=== PATIENT | male | born 2000 | race Caucasian/White ===

== ENCOUNTER 2023-06-15 12:15 | Observation (INO) | payer OTHER ==
--- NOTE | 2023-06-15 12:23 | ED ---
General Adult HPI - General Source: patient, RN notes reviewed Mode of arrival: ambulatory Limitations: no limitations <Otoniel Monroy - Last Filed: 06/15/23 12:22> <Jhonatan Haas - Last Filed: 06/15/23 13:30> - General Stated complaint: abd pain Time Seen by Provider: 06/15/23 12:22 - History of Present Illness Initial comments: 23-year-old male presents emergency Department chief complaint of abdominal pain. Patient states that 2 weeks ago he was at a different hospital which she was diagnosed with colitis. Patient states he continues to have abdominal discomfort, weight loss, nausea vomiting diarrhea. (Otoniel Monroy) This is a 23-year-old male who presents emergency Department with a three-week history of rectal bleeding. Patient states it was quite a bit of rectal bleeding early on and he still has a little bit after he experiences abdominal cramping. Patient states he has lost 20 pounds in the last 3 weeks. Patient has been to any ER or urgent care 4 times and has had 2 CAT scans. Patient states as of 3 days ago he starts vomiting anytime he eats or drinks anything. Patient states this morning he had some water and vomited that up as well. Patient is in college currently in trying to study for his finals next week and this is making it difficult. Patient has requested [facility] hospitalist (Jhonatan Haas) Review of Systems ROS Other: All systems not noted in ROS Statement are negative. <Otoniel Monroy - Last Filed: 06/15/23 12:22> ROS Other: All systems not noted in ROS Statement are negative. <Jhonatan Haas - Last Filed: 06/15/23 13:30> ROS Statement: Those systems with pertinent positive or pertinent negative responses have been documented in the HPI. General Exam <Otoniel Monroy - Last Filed: 06/15/23 12:22> <Jhonatan Haas - Last Filed: 06/15/23 13:30> - General Exam Comments Initial Comments: Visual Physical Exam Vital signs reviewed General: Well-appearing, nontoxic, no acute distress. Head: Normocephalic, atraumatic Eyes: PERRLA, EOMI ENT: Airway patent Chest: Nonlabored breathing Skin: No visual rash, normal skin tone Neuro: Alert and oriented 3 Musculoskeletal: No gross abnormalities (Otoniel Monroy) GENERAL: Patient is well-developed and well-nourished. Patient is nontoxic and well- hydrated and is in mild distress. ENT: Neck is soft and supple. No significant lymphadenopathy is noted. Oropharynx is clear. Moist mucous membranes. Neck has full range of motion without elicit ing any pain. EYES: The sclera were anicteric and conjunctiva were pink and moist. Extraocular m ovements were intact and pupils were equal round and reactive to light. Eyelids were unremarkable. PULMONARY: Unlabored respirations. Good breath sounds bilaterally. No audible rales rhonchi or wheezing was noted. CARDIOVASCULAR: There is a regular rate and rhythm without any murmurs gallops or rubs. ABDOMEN: Soft and nontender with normal bowel sounds. SKIN: Skin is clear with no lesions or rashes and otherwise unremarkable. NEUROLOGIC: Patient is alert and oriented x3. Cranial nerves II through XII are grossly intact. Motor and sensory are also intact. Normal speech, volume and content. Symmetrical smile. MUSCULOSKELETAL: Normal extremities with adequate strength and full range of motion. LYMPHATICS: No significant lymphadenopathy is noted PSYCHIATRIC: Normal psychiatric evaluation. (Jhonatan Haas) Course Vital Signs 06/15/23 12:26 Temperature 98.2 F Pulse Rate 106 H Respiratory 18 Rate Blood Pressure 137/83 O2 Sat by Pulse 97 Oximetry Medical Decision Making <Otoniel Monroy - Last Filed: 06/15/23 12:22> - Lab Data Result diagrams: 06/15/23 12:34 06/15/23 12:34 <Jhonatan Haas - Last Filed: 06/15/23 13:30> - Medical Decision Making I completed the quick note portion of this chart signed Otoniel Monroy PA-C (Otoniel Monroy) Was pt. sent in by a medical professional or institution (, PA, BEER MAKER, urgent care, hospital, or senior care...) When possible be specific @ -No Did you speak to anyone other than the patient for history (EMS, parent, family, police, friend...)? What history was obtained from this source @ -No Did you review nursing and triage notes (agree or disagree)? Why? @ -I reviewed and agree with nursing and triage notes Were old charts reviewed (outside hosp., previous admission, EMS record, old EKG, old radiological studies, urgent care reports/EKG's, senior care records)? Report findings @ -Old charts since multiple facilities an old CTs from other facilities. Differential Diagnosis (chest pain, altered mental status, abdominal pain women, abdominal pain men, vaginal bleeding, weakness, fever, dyspnea, syncope, headache, dizziness, GI bleed, back pain, seizure, CVA, palpatations, mental health, musculoskeletal)? @ -Differential Abdominal Pain Men: Appendicitis, cholecystitis, diverticulosis, ischemic bowel, pancreatitis, hepatitis, UTI, gastroenteritis, AAA, incarcerated hernia, bowel obstruction, constipation, inflammatory bowel, hepatitis, peptic ulcer disease, splenic infarction, perforated viscus, testicular torsion, this is not meant to be an al l-inclusive list EKG interpreted by me (3pts min.). @ -As above X-rays interpreted by me (1pt min.). @ -None done CT interpreted by me (1pt min.). @ -None done U/S interpreted by me (1pt. min.). @ -None done What testing was considered but not performed or refused? (CT, X-rays, U/S, labs)? Why? @ -None What meds were considered but not given or refused? Why? @ -None Did you discuss the management of the patient with other professionals (professionals i.e. , PA, BEER MAKER, lab, RT, psych nurse, social science research assistant, service person, teacher, executive vice president and chief financial officer, security shift manager)? Give summary @ -Patient requested a [place] hospitalist. I finished hospice they agreed to admit the patient Was smoking cessation discussed for >3mins.? @ -No Was critical care preformed (if so, how long)? @ -No Were there social determinants of health that impacted care today? How? (Homelessness, low income, unemployed, alcoholism, drug addiction, transportation, low edu. Level, literacy, decrease access to med. care, care home, rehab)? @ -No Was there de-escalation of care discussed even if they declined (Discuss DNR or withdrawal of care, Hospice)? DNR status @ -No What co-morbidities impacted this encounter? (DM, HTN, Smoking, COPD, CAD, Cancer, CVA, ARF, Chemo, Hep., AIDS, mental health diagnosis, sleep apnea, morbid obesity)? @ -None Was patient admitted / discharged? Hospital course, mention meds given and route, prescriptions, significant lab abnormalities, going to OR and other pertinent info. @ -Patient had no diarrhea or vomiting in the emergency department but he has not eaten any solid food for 3 days. Patient will be admitted for 23 observation and will be consulted. Undiagnosed new problem with uncertain prognosis? @ -No Drug Therapy requiring intensive monitoring for toxicity (Heparin, Nitro, Insulin, Cardizem)? @ -No Were any procedures done? @ -No Diagnosis/symptom? @ -Rectal bleeding Acute, or Chronic, or Acute on Chronic? @ -Acute Uncomplicated (without systemic symptoms) or Complicated (systemic symptoms)? @ -Complicated Side effects of treatment? @ -No Exacerbation, Progression, or Severe Exacerbation? @ -No Poses a threat to life or bodily function? How? (Chest pain, [place], [place], pneumonia, PE, COPD, DKA, ARF, appy, cholecystitis, CVA, Diverticulitis, Homicidal, Suicidal, threat to staff... and all critical care pts) @ -No Diagnosis/symptom? @ -Nausea vomiting Acute, or Chronic, or Acute on Chronic? @ -Acute Uncomplicated (without systemic symptoms) or Complicated (systemic symptoms)? @ -Complicated Side effects of treatment? @ -none Exacerbation, Progression, or Severe Exacerbation] @ -no Poses a threat to life or bodily function? @ -no (Jhonatan Haas) - Lab Data Lab Results 06/15/23 06/15/23 06/15/23 Range/Units 12:34 12:34 12:34 WBC 6.4 (3.8-10.6) k/uL RBC 4.90 (4.30-5.90) m/uL Hgb 14.6 (13.0-17.5) gm/dL Hct 42.4 (39.0-53.0) % MCV 86.5 (80.0-100.0) fL MCH 29.7 (25.0-35.0) pg MCHC 34.3 (31.0-37.0) g/dL RDW 12.8 (11.5-15.5) % Plt Count 308 (150-450) k/uL MPV 6.7 Neutrophils % 66 % Lymphocytes % 23 % Monocytes % 7 % Eosinophils % 2 % Basophils % 1 % Neutrophils # 4.2 (1.3-7.7) k/uL Lymphocytes # 1.4 (1.0-4.8) k/uL Monocytes # 0.4 (0-1.0) k/uL Eosinophils # 0.1 (0-0.7) k/uL Basophils # 0.0 (0-0.2) k/uL Sodium 139 (137-145) mmol/L Potassium 4.2 (3.5-5.1) mmol/L Chloride 105 (98-107) mmol/L Carbon Dioxide 11 L (22-30) mmol/L Anion Gap 23 mmol/L BUN 9 (9-20) mg/dL Creatinine 0.99 (0.66-1.25) mg/dL Est GFR (CKD-EPI)AfAm >90 (>60 ml/min/1.73 sqM) Est GFR (CKD-EPI)NonAf >90 (>60 ml/min/1.73 sqM) Glucose 58 L (74-99) mg/dL Plasma Lactic Acid Lionel 0.7 (0.7-2.0) mmol/L Calcium 9.8 (8.4-10.2) mg/dL Total Bilirubin 1.0 (0.2-1.3) mg/dL AST 28 (17-59) U/L ALT 22 (4-49) U/L Alkaline Phosphatase 79 (38-126) U/L Total Protein 7.7 (6.3-8.2) g/dL Albumin 4.9 (3.5-5.0) g/dL Lipase 59 (23-300) U/L Disposition <Otoniel Monroy - Last Filed: 06/15/23 12:22> Time of Disposition: 13:30 <Jhonatan Haas - Last Filed: 06/15/23 13:30> Clinical Impression: Rectal bleeding, Abdominal cramping, Nausea & vomiting Disposition: ADMITTED IP TO THIS HOSP Referrals: None,Stated [Primary Care Provider] - 1-2 days
[2023-06-15 13:10] LABS: ALT 22 U/L (4-49); AST 28 U/L (17-59); African American GFR (CKD) >90 (>60 ml/min/1.73 sqM); Albumin 4.9 g/dL (3.5-5.0); Alkaline Phosphatase 79 U/L (38-126); Anion Gap 23 mmol/L; Blood Urea Nitrogen 9 mg/dL (9-20); Calcium 9.8 mg/dL (8.4-10.2); Carbon Dioxide 11 mmol/L (22-30); Chloride 105 mmol/L (98-107); Glucose 58 mg/dL (74-99); Lipase 59 U/L (23-300); Non-African American GFR(CKD) >90 (>60 ml/min/1.73 sqM); Potassium 4.2 mmol/L (3.5-5.1); Sodium 139 mmol/L (137-145); Total Protein 7.7 g/dL (6.3-8.2)
[2023-06-15 13:15] LABS: Basophils % (A) 1 %; Eosinophils # (A) 0.1 k/uL (0-0.7); Eosinophils % (A) 2 %; HCT 42.4 % (39.0-53.0); HGB 14.6 gm/dL (13.0-17.5); Lymphocytes # (A) 1.4 k/uL (1.0-4.8); Lymphocytes % (A) 23 %; MCH 29.7 pg (25.0-35.0); MCHC 34.3 g/dL (31.0-37.0); MCV 86.5 fL (80.0-100.0); Mean Platelet Volume 6.7; Monocytes # (A) 0.4 k/uL (0-1.0); Monocytes % (A) 7 %; Neutrophils # (A) 4.2 k/uL (1.3-7.7); Neutrophils % (A) 66 %; Platelet Count 308 k/uL (150-450); RDW 12.8 % (11.5-15.5); WBC 6.4 k/uL (3.8-10.6)
[2023-06-15 13:27] LABS: INR 1.1 (<1.2); Partial Thromboplastin Time 27.2 sec (22.0-30.0); Prothrombin Time 11.9 sec (10.0-12.5)
[2023-06-15] MEDS ORDERED: SODIUM CHLORIDE 0.9% 1,000 ML IV ONE (13:31)
[2023-06-15] MEDS: PANTOPRAZOLE 40 MG/10 ML VIAL IVP SCH ×2 (14:00→21:27)
[2023-06-15] MEDS ORDERED: ACETAMINOPHEN TAB 325 MG TAB PO PRN (14:25)
[2023-06-15] MEDS ORDERED: ONDANSETRON 4 MG/2 ML VIAL IVP PRN (14:25)
[2023-06-15] MEDS ORDERED: HYDROcodone/APAP 5-325MG 1 EACH TAB PO PRN (14:25)
[2023-06-15] MEDS ORDERED: HYDROmorphone 1 MG/ML 1 ML SYRINGE IVP PRN (14:25)
[2023-06-15] MEDS ORDERED: NALOXONE 0.4 MG/ML 1 ML VIAL IV PRN (14:25)
--- NOTE | 2023-06-15 14:59 | P.HPIM ---
History of Present Illness H&P Date: 06/15/23 Chief Complaint: Abdominal pain blood in stool * 23-year-old gentleman who presents to the emergency department with complains of abdominal pain. Patient said he has been having nausea, vomiting and diarrhea ongoing for the last 2 weeks. Patient said he went to an ER multiple times and had 2 CT abdomen completed. Patient said he was told he had colitis. Patient decided to come back to the emergency department because of persistent symptoms and three-week history of rectal bleeding and approximately 20 pound weight loss. * Patient states that couple of weeks ago patient was seen in the ED at outside hospital and was prescribed antibiotic which she took for 1 week. Patient does not remember the exact name however Ceftin and Flagyl seemed familiar to him. Patient says he'll symptom persisted and went to [facility] where he had repeat CT done. Patient states he has about 6-7 loose stool, with streaks of blood. Patient says he does have some flecks of solid component as well * He denied sick contact denies recent travel or camping * Workup initiated in ER included CBC which was sensitive negative with hemoglobin of 14.6 platelet count of 308 INR of 1.1 * Serum chemistry obtained sodium 139 potassium 4.2 carbon dioxide 11 BU and 9 and creatinine 0.99 glucose 58 liver profile within normal limits * Patient placed in observation with consultation to be obtained from gastroenterology * CT from outside hospital requested by ED team REVIEW OF SYSTEMS: Nausea, vomiting, abdominal pain, blood in stool, diarrhea CONSTITUTIONAL: No fever, no malaise, no fatigue. HEENT: No recent visual problems or hearing problems. Denied any sore throat. CARDIOVASCULAR: No chest pain, orthopnea, PND, no palpitations, no syncope. PULMONARY: No shortness of breath, no cough, no hemoptysis. GASTROINTESTINAL:Nausea, vomiting, abdominal pain, blood in stool, diarrhea, weight loss NEUROLOGICAL: No headaches, no weakness, no numbness. HEMATOLOGICAL: Denies any bleeding or petechiae. GENITOURINARY: Denies any burning micturition, frequency, or urgency. MUSCULOSKELETAL/RHEUMATOLOGICAL: Denies any joint pain, swelling, or any muscle pain. ENDOCRINE: Denies any polyuria or polydipsia. PHYSICAL EXAMINATION: GENERAL: The patient is alert and oriented x3, not in any acute distress. Well developed, well nourished. HEENT: Pupils are round and equally reacting to light. EOMI. CARDIOVASCULAR: S1 and S2 present. No murmurs, rubs, or gallops. PULMONARY: Chest is clear to auscultation, no wheezing or crackles. ABDOMEN: Soft, nontender, nondistended, normoactive bowel sounds. No palpable organomegaly. MUSCULOSKELETAL: No joint swelling or deformity. EXTREMITIES: No cyanosis, clubbing, or pedal edema. NEUROLOGICAL: Gross neurological examination did not reveal any focal deficits. SKIN: No rashes. Past Medical History Additional Past Medical History / Comment(s): colitis History of Any Multi-Drug Resistant Organisms: None Reported Past Surgical History: No Surgical Hx Reported Past Psychological History: No Psychological Hx Reported Smoking Status: Never smoker Past Alcohol Use History: Rare Past Drug Use History: None Reported Medications and Allergies Home Medications Medication Instructions Recorded Confirmed Type HYDROcodone/APAP 5-325MG [[place] 1 tab PO Q6H PRN 06/15/23 06/15/23 History 5-325] Ondansetron Odt [Zofran Odt] 4 mg PO TID PRN 06/15/23 06/15/23 History Prochlorperazine [Compazine] 10 mg PO DIRECTED PRN 06/15/23 06/15/23 History Allergies Allergy/AdvReac Type Severity Reaction Status Date / Time Milk Containing Products Allergy Unknown Verified 06/15/23 14:09 (Dairy) [Dairy] Physical Exam Vitals: Vital Signs Temp Pulse Resp BP Pulse Ox 06/15/23 12:26 98.2 F 106 H 18 137/83 97 Intake and Output 06/14/23 06/15/23 06/15/23 22:59 06:59 14:59 Other: Weight 89.539 kg Results CBC & Chem 7: 06/15/23 12:34 06/15/23 12:34 Labs: Abnormal Lab Results - Last 24 Hours (Table) 06/15/23 Range/Units 12:34 Carbon Dioxide 11 L (22-30) mmol/L Glucose 58 L (74-99) mg/dL Thrombosis Risk Factor Assmnt - DVT/VTE Prophylaxis DVT/VTE Prophylaxis: Mechanical Prophylaxis ordered Assessment and Plan Assessment: Assessment and plan Right red blood per rectum rule out gastrointestinal bleed Recurrent nausea/vomiting suspected gastritis Diarrhea rule out infectious etiology Metabolic acidosis * In regards to blood in stool, fecal occult blood tests ordered, continue IV Protonix, diet to be advanced to clear liquid was seen by GI, continue to monitor CBC every 6 hours * In regards to recurrent nausea and vomiting patient started on IV fluid, continue IV Zofran as needed for nausea on up on basic metabolic panel up on basic metabolic panel * In regards to diarrhea rule out infectious etiology stool C. diff ordered stool cultures ordered * ,In regards to metabolic acidosis continue to follow-up on serum chemistry post hydration * CODE STATUS is full code
--- NOTE | 2023-06-15 15:16 | P.CONS ---
History of Present Illness - Reason for Consult Consult date: 06/15/23 Active bleeding, 20 pound weight loss Requesting physician: Jhonatan Haas - Chief Complaint Abdominal pain, rectal bleeding - History of Present Illness This a 23-year-old male who presented to the emergency department with complaints of abdominal pain and rectal bleeding. Apparently patient 2 weeks ago was at a outside hospital [facility] and was diagnosed with colitis. He states he was only told he had colitis from a CAT scan. He was sent home on 2 antibiotics for 1 week, Bentyl and Zofran. He continued to have blood in his stools bowel movements could be anywhere from 3-7 day. He has not had bowel movement the last couple days because he has not been eating. States every time he tries to eat he is vomiting over the last 2 days. Bowel movements often happen throughout the night as well. Denies any fevers or chills but states he's lost 20 pounds in the last 2-3 weeks duration. Yesterday he was also seen at [facility] in [place] and states he had another CAT scan which he says he was told was improved inflammation however he was still feeling abdominal pain so he came to the emergency department. Apparently records have been requested but not available at this time. Labs WBC 6.4 hemoglobin 14.6 hematocrit 42 platelet count 308,019 or 1.1 sodium 139 potassium 4.2 BUN 9 creatinine 0.9 glucose 58 total bilirubin 1.0 AST 28 ALT 22 alkaline phosphatase 79 lipase 59 Review of Systems REVIEW OF SYSTEMS: CARDIOPULMONARY: No chest pain or shortness of breath. Gastrointestinal: Abdominal pain, crampy in nature. Nausea with vomiting. Difficulty holding food down. Reports 20 pound weight loss in last 3 weeks. No hematemesis, coffee-ground emesis. Rectal bleeding with loose stools. GENITOURINARY: No dysuria or hematuria. MUSCULOSKELETAL: Reports normal range of motion. SKIN: No rashes. No jaundice. ENDOCRINE: No chills, fevers. No excessive weight gain or loss. No polydipsia or polyuria. PSYCHIATRIC: Unremarkable. NEUROLOGY: No change in mental status. Denies dizziness, headache. ENT: Vision unremarkable. CONSTITUTIONAL: No recent weight loss. No fever, chills, night sweats. Past Medical History Additional Past Medical History / Comment(s): colitis History of Any Multi-Drug Resistant Organisms: None Reported Past Surgical History: No Surgical Hx Reported Past Psychological History: No Psychological Hx Reported Smoking Status: Never smoker Past Alcohol Use History: Rare Past Drug Use History: None Reported Medications and Allergies Home Medications Medication Instructions Recorded Confirmed Type HYDROcodone/APAP 5-325MG [[place] 1 tab PO Q6H PRN 06/15/23 06/15/23 History 5-325] Ondansetron Odt [Zofran Odt] 4 mg PO TID PRN 06/15/23 06/15/23 History Prochlorperazine [Compazine] 10 mg PO DIRECTED PRN 06/15/23 06/15/23 History Allergies Allergy/AdvReac Type Severity Reaction Status Date / Time Milk Containing Products Allergy Unknown Verified 06/15/23 14:09 (Dairy) [Dairy] Physical Exam Vitals: Vital Signs Temp Pulse Resp BP Pulse Ox 06/15/23 12:26 98.2 F 106 H 18 137/83 97 Intake and Output 06/14/23 06/15/23 06/15/23 22:59 06:59 14:59 Other: Weight 89.539 kg General appearance: The patient is alert, oriented, appears in no acute distress. HET: Head is normocephalic and atraumatic. Conjunctiva pink. Sclera anicteric. Neck: Supple without lymphadenopathy. Trachea midline. Heart: Regular. Lungs: Equal expansion, normal respiratory effort. Abdomen: Soft, lower abdominal tenderness, nondistended with bowel sounds. No guarding or rigidity. Skin: No rashes. No jaundice. Extremities: Normal skin color and turgor. No pedal edema. Neurological: No focal deficits. Alert and oriented x3. Results CBC & Chem 7: 06/15/23 12:34 06/15/23 12:34 Labs: Abnormal Lab Results - Last 24 Hours (Table) 06/15/23 Range/Units 12:34 Carbon Dioxide 11 L (22-30) mmol/L Glucose 58 L (74-99) mg/dL Assessment and Plan (1) Rectal bleeding Narrative/Plan: 23-year-old male presenting to the emergency department for the third time in the last 2 weeks with complaints of abdominal pain, diarrhea and bloody bowel movements. No previous history of colitis, no previous history ulcerative colitis or Crohn's disease. No recent illness. Complaints of 20 pound weight loss with nausea, vomiting, abdominal pain 3-7 bowel movements a day that occur even in the nighttime. Was given recent antibiotics what sounds like treatment for possible acute colitis. He has not had any follow-up with gastroenterology. Certainly could be dealing with acute colitis however need to also consider possible inflammatory bowel disease. Will obtain sedimentation rate and CRP. We'll plan for colonoscopy tomorrow with biopsies. Procedure discussed with patient including risks and benefits. Current Visit: Yes Status: Acute Code(s): K62.5 - HEMORRHAGE OF ANUS AND RECTUM SNOMED Code(s): 50464348 (2) Unintentional weight loss Current Visit: Yes Status: Acute Code(s): R63.4 - ABNORMAL WEIGHT LOSS SNOMED Code(s): 184646280 (3) Nausea & vomiting Current Visit: Yes Status: Acute Code(s): R11.2 - NAUSEA WITH VOMITING, UNSPECIFIED SNOMED Code(s): 09354431 (4) Diarrhea Current Visit: Yes Status: Acute Code(s): R19.7 - DIARRHEA, UNSPECIFIED SNOMED Code(s): 93220566 (5) Abdominal pain Current Visit: Yes Status: Acute Code(s): R10.9 - UNSPECIFIED ABDOMINAL PAIN SNOMED Code(s): 49891992 Plan: 1. Continue symptomatic and supportive care 2. Clear liquid diet, nothing by mouth after midnight 3. C. diff and stool cultures ordered 4. Sed rate and CRP ordered 5. Bowel prep this evening 6. Plan for colonoscopy with biopsies tomorrow with further recommendations Thank you for this consultation, we will continue to follow. Dr. Radha Rico I agree with the dictator's note, documented as a scribe by Nadeen Starr.
[2023-06-15 16:23] LABS: Glucose,Whole Blood 62 mg/dL (70-110)
[2023-06-15] MEDS ORDERED: PEG 3350 (236 GM/BTL) + LYTES 4,000 ML BOTTLE PO ONE (17:00)
[2023-06-16 03:04] LABS: Basophils % (A) 1 %; Eosinophils # (A) 0.2 k/uL (0-0.7); Eosinophils % (A) 3 %; HCT 40.4 % (39.0-53.0); HGB 13.9 gm/dL (13.0-17.5); Lymphocytes # (A) 2.4 k/uL (1.0-4.8); Lymphocytes % (A) 31 %; MCH 30.2 pg (25.0-35.0); MCHC 34.5 g/dL (31.0-37.0); MCV 87.5 fL (80.0-100.0); Mean Platelet Volume 6.9; Monocytes # (A) 0.6 k/uL (0-1.0); Monocytes % (A) 8 %; Neutrophils # (A) 4.2 k/uL (1.3-7.7); Neutrophils % (A) 54 %; Platelet Count 301 k/uL (150-450); RBC 4.62 m/uL (4.30-5.90); WBC 7.7 k/uL (3.8-10.6)
[2023-06-16] MEDS: PANTOPRAZOLE 40 MG/10 ML VIAL IVP SCH ×2 (08:49→19:49)
[2023-06-16 10:18] LABS: Glucose,Whole Blood 62 mg/dL (70-110)
[2023-06-16] MEDS ORDERED: DEXTROSE 50% SYRINGE 50 ML IVP STA ×2 (10:20→12:49)
[2023-06-16] MEDS ORDERED: DEXTROSE 50% SYRINGE 50 ML IVP ONE (10:22)
[2023-06-16 11:04] LABS: Glucose,Whole Blood 103 mg/dL (70-110)
--- NOTE | 2023-06-16 12:28 | P.PN ---
Subjective Progress Note Date: 06/16/23 * 23-year-old gentleman who presents to the emergency department with complains of abdominal pain. Patient said he has been having nausea, vomiting and diarrhea ongoing for the last 2 weeks. Patient said he went to an ER multiple times and had 2 CT abdomen completed. Patient said he was told he had coli tis. Patient decided to come back to the emergency department because of persistent symptoms and three-week history of rectal bleeding and approximately 20 pound weight loss. * Patient states that couple of weeks ago patient was seen in the ED at outside hospital and was prescribed antibiotic which she took for 1 week. Patient does not remember the exact name however Ceftin and Flagyl seemed familiar to him. Patient says he'll symptom persisted and went to [facility] where he had repeat CT done. Patient states he has about 6-7 loose stool, with streaks of blood. Patient says he does have some flecks of solid component as well * He denied sick contact denies recent travel or camping * Workup initiated in ER included CBC which was sensitive negative with hemoglobin of 14.6 platelet count of 308 INR of 1.1 * Serum chemistry obtained sodium 139 potassium 4.2 carbon dioxide 11 BU and 9 and creatinine 0.99 glucose 58 liver profile within normal limits * Patient placed in observation with consultation to be obtained from gastroenterology * CT from outside hospital requested by ED team * 06/16/2023: Patient seen and evaluated bedside, patient diarrhea has improved. Planned for EGD and colonoscopy scheduled for today. Hemoglobin 13.9, patient denies nausea/vomiting/abdominal pain. Stool C. diff negative, stool fecal occult blood test negative stool cultures ordered. REVIEW OF SYSTEMS: Nausea, vomiting, abdominal pain RESOLVED , blood in stool, diarrhea resolved CONSTITUTIONAL: No fever, no malaise, no fatigue. HEENT: No recent visual problems or hearing problems. Denied any sore throat. CARDIOVASCULAR: No chest pain, orthopnea, PND, no palpitations, no syncope. PULMONARY: No shortness of breath, no cough, no hemoptysis. GASTROINTESTINAL:Nausea, vomiting, abdominal pain, blood in stool, diarrhea RESOLVED , weight loss NEUROLOGICAL: No headaches, no weakness, no numbness. HEMATOLOGICAL: Denies any bleeding or petechiae. GENITOURINARY: Denies any burning micturition, frequency, or urgency. MUSCULOSKELETAL/RHEUMATOLOGICAL: Denies any joint pain, swelling, or any muscle pain. ENDOCRINE: Denies any polyuria or polydipsia. PHYSICAL EXAMINATION: GENERAL: The patient is alert and oriented x3, not in any acute distress. Well developed, well nourished. HEENT: Pupils are round and equally reacting to light. EOMI. CARDIOVASCULAR: S1 and S2 present. No murmurs, rubs, or gallops. PULMONARY: Chest is clear to auscultation, no wheezing or crackles. ABDOMEN: Soft, nontender, nondistended, normoactive bowel sounds. No palpable organomegaly. MUSCULOSKELETAL: No joint swelling or deformity. EXTREMITIES: No cyanosis, clubbing, or pedal edema. NEUROLOGICAL: Gross neurological examination did not reveal any focal deficits. SKIN: No rashes. Objective - Vital Signs Vital signs: Vital Signs Temp 98.1 F 06/16/23 07:00 Pulse 70 06/16/23 07:00 Resp 14 06/16/23 08:00 BP 106/70 06/16/23 07:00 Pulse Ox 98 06/16/23 07:00 FiO2 Intake & Output 06/15/23 06/16/23 06/16/23 18:59 06:59 18:59 Output Total 2 1 Balance -2 -1 Weight 89.539 kg 89.539 kg Output: Stool 2 1 Other: Voiding Method Toilet Toilet # Voids 1 - Labs CBC & Chem 7: 06/16/23 02:24 06/15/23 12:34 Labs: Abnormal Lab Results - Last 24 Hours (Table) 06/15/23 06/15/23 06/16/23 Range/Units 12:34 16:21 10:13 Carbon Dioxide 11 L (22-30) mmol/L Glucose 58 L (74-99) mg/dL POC Glucose (mg/dL) 62 L 62 L (70-110) mg/dL Assessment and Plan Assessment: Assessment and plan Right red blood per rectum rule out gastrointestinal bleed Recurrent nausea/vomiting suspected gastritis Diarrhea rule out infectious etiology Metabolic acidosis * In regards to blood in stool, fecal occult blood tests NEGATIVE continue IV Protonix, diet to be advanced to clear liquid was seen by GI , NPO after midnight for EGD and colonoscopy , CBC remained stable * In regards to recurrent nausea and vomiting patient started on IV fluid, continue IV Zofran as needed for nausea on up on basic metabolic panel up on basic metabolic panel * In regards to diarrhea rule out infectious etiology stool C. diff NEGATIVE stool cultures ordered * In regards to metabolic acidosis continue to follow-up on serum chemistry post hydration * CODE STATUS is full code
[2023-06-16 12:43] LABS: Glucose,Whole Blood 69 mg/dL (70-110)
[2023-06-16] MEDS ORDERED: PROPOFOL 10 MG/ML 20 ML VIAL IV ONE (12:55)
[2023-06-16] MEDS ORDERED: IV FLUID CONTINUATION 1,000 ML IV ONE ×2 (12:56)
[2023-06-16 13:16] LABS: Glucose,Whole Blood 116 mg/dL (70-110)
--- NOTE | 2023-06-16 13:16 | P.PCN ---
Date of Procedure: 06/16/23 Procedure(s) Performed: BRIEF HISTORY: Patient is a 23-year-old pleasant white male admitted hospital with rectal bleeding for the last 3 weeks' duration. His been having intermittent lower abdominal pain and rectal bleeding about 3-4 times a day. When to the emergency room and [facility] and apparently had a CAT scan that was unremarkable. He came to the emergency room yesterday with same symptoms and hence scheduled for colonoscopy to evaluate further. PROCEDURE PERFORMED: Colonoscopy with multiple biopsies PREOPERATIVE DIAGNOSIS: Rectal bleeding of 3 weeks' duration associated weight loss of 20 pounds. IV sedation per Anesthesia. PROCDURE: After informed consent was obtained, the patient, was brought into the endoscunit. IV sedation was administered by Anesthesia under continuous monitoring. Digital rectal examination was normal. Initially the Olympus CF-160 flexible video colonoscope was then inserted in the rectum, gradually advanced into the cecum without any difficulty. Careful examination was performed as the scope was gradually being withdrawn. Ileocecal valve and the appendiceal orifice were visualized and appeared normal. Prep wafeet. Terminal ileum was intubated and 20 cm visualized and appeared normal and biopsies were done from this area. . Mucosa of the cecum, ascending colon, transverse colonnormal. There were patchy areas of erythema noted in the , descending colon, sigmoid colon, and recwith no evidence of erosions or ulcerations noted. Multiple biopsies were done from this areas. Retroflexion was performed in the rectum and no lesions were seen. The patient tolerated the procedure well. IMPRESSION: Normal-appearing terminal ileum Mild patchy areas of erythema noted in the proximal rectum, sigmoid colon and descending colon up to 50 cm from the anal verge consistent with mild colitis status post multiple biopsies to evaluate for inflammatory bowel disease Right colon appeared normal RECOMMENDATIONS: Findings of this examination were discussed with the patient as well as his family. He was advised to follow with the biopsy results. Regular diet today. He'll be seen in office next week..
--- NOTE | 2023-06-16 18:32 | P.DS ---
Providers Date of admission: 06/15/23 13:32 Expected date of discharge: 06/16/23 Attending physician: Carissa Alarcon MD Consults: 06/15/23 13:20 Consult Physician Urgent Consulting Provider: Kinza Rico Consult Reason/Comments: Rectal bleeding, 20 pound weight loss, vomiting Do you want consulting provider notified?: Yes Primary care physician: Stated None Hospital Course: 23-year-old gentleman who presents to the emergency department with complains of abdominal pain. Patient said he has been having nausea, vomiting and diarrhea ongoing for the last 2 weeks. Patient said he went to an ER multiple times and had 2 CT abdomen completed. Patient said he was told he had colitis. Patient decided to come back to the emergency department because of persistent symptoms and three-week history of rectal bleeding and approximately 20 pound weight loss. * Patient states that couple of weeks ago patient was seen in the ED at outside hospital and was prescribed antibiotic which she took for 1 week. Patient does not remember the exact name however Ceftin and Flagyl seemed familiar to him. Patient says he'll symptom persisted and went to [facility] where he had repeat CT done. Patient states he has about 6-7 loose stool, with streaks of blood. Patient says he does have some flecks of solid component as well * He denied sick contact denies recent travel or camping * Workup initiated in ER included CBC which was sensitive negative with hemoglobin of 14.6 platelet count of 308 INR of 1.1 * Serum chemistry obtained sodium 139 potassium 4.2 carbon dioxide 11 BU and 9 and creatinine 0.99 glucose 58 liver profile within normal limits * Patient placed in observation with consultation to be obtained from gastroenterology * CT from outside hospital requested by ED team * 06/16/2023: Patient seen and evaluated bedside, patient diarrhea has improved. Planned for EGD and colonoscopy scheduled for today. Hemoglobin 13.9, patient denies nausea/vomiting/abdominal pain. Stool C. diff negative, stool fecal occult blood test negative stool cultures ordered.S/P Colonoscopy, CLeared fro DC, HB stable, follow up with GI Outpatient REVIEW OF SYSTEMS: Nausea, vomiting, abdominal pain RESOLVED , blood in stool, diarrhea resolved CONSTITUTIONAL: No fever, no malaise, no fatigue. HEENT: No recent visual problems or hearing problems. Denied any sore throat. CARDIOVASCULAR: No chest pain, orthopnea, PND, no palpitations, no syncope. PULMONARY: No shortness of breath, no cough, no hemoptysis. GASTROINTESTINAL:Nausea, vomiting, abdominal pain, blood in stool, diarrhea RESOLVED , weight loss NEUROLOGICAL: No headaches, no weakness, no numbness. HEMATOLOGICAL: Denies any bleeding or petechiae. GENITOURINARY: Denies any burning micturition, frequency, or urgency. MUSCULOSKELETAL/RHEUMATOLOGICAL: Denies any joint pain, swelling, or any muscle pain. ENDOCRINE: Denies any polyuria or polydipsia. PHYSICAL EXAMINATION: GENERAL: The patient is alert and oriented x3, not in any acute distress. Well developed, well nourished. HEENT: Pupils are round and equally reacting to light. EOMI. CARDIOVASCULAR: S1 and S2 present. No murmurs, rubs, or gallops. PULMONARY: Chest is clear to auscultation, no wheezing or crackles. ABDOMEN: Soft, nontender, nondistended, normoactive bowel sounds. No palpable organomegaly. MUSCULOSKELETAL: No joint swelling or deformity. EXTREMITIES: No cyanosis, clubbing, or pedal edema. NEUROLOGICAL: Gross neurological examination did not reveal any focal deficits. SKIN: No rashes. Assessment: ASSESSMENT AND PLAN Right red blood per rectum rule out gastrointestinal bleed Recurrent nausea/vomiting suspected gastritis Diarrhea rule out infectious etiology Metabolic acidosis * In regards to blood in stool, fecal occult blood tests NEGATIVE diet advanced , S/P Colonoscopy biopsy, [place] home * In regards to recurrent nausea and vomiting patient started on IV fluid, given IV Zofran as needed for nausea CBC, BMP Stable * In regards to diarrhea rule out infectious etiology stool C. diff NEGATIVE Patient Condition at Discharge: Good Plan - Discharge Summary Discharge Rx Participant: No New Discharge Prescriptions: Continue HYDROcodone/APAP 5-325MG [[place] 5-325] 1 tab PO Q6H PRN PRN Reason: Pain Ondansetron Odt [Zofran ODT] 4 mg PO TID PRN PRN Reason: Nausea Prochlorperazine [Compazine] 10 mg PO DIRECTED PRN PRN Reason: Nausea Discharge Medication List HYDROcodone/APAP 5-325MG [[place] 5-325] 1 tab PO Q6H PRN 06/15/23 [History] Ondansetron Odt [Zofran ODT] 4 mg PO TID PRN 06/15/23 [History] Prochlorperazine [Compazine] 10 mg PO DIRECTED PRN 06/15/23 [History] Follow up Appointment(s)/Referral(s): Kinza Rico MD [STAFF PHYSICIAN] - 06/21/23 4:00 pm (GI for biopsy results) Patient Instructions/Handouts: *Surgery [facility] - (Anesthesia) Discharge Instructions Outpatient Surgery, Colitis (ED), Colonoscopy (DC) Activity/Diet/Wound Care/Special Instructions: Activity Limited until follow-up Follow-up with primary care provider to establish outpatient Follow-up with GI outpatient in 1-2 weeks for biopsy results Continue current diet and slowly advance as tolerated Discharge Disposition: HOME SELF-CARE
[2023-06-17 07:32] VITALS: RESP 16
[2023-06-17 09:14] LABS: Blood Urea Nitrogen 3.9 mg/dL (9.0-27.0); Calcium 9.3 mg/dL (8.7-10.3); Carbon Dioxide 20.4 mmol/L (21.6-31.8); Chloride 105 mmol/L (96-109); Glucose 77 mg/dL (70-110); Potassium 3.9 mmol/L (3.5-5.5); Sodium 140 mmol/L (135-145)
[2023-06-17 10:16] LABS: HCT 37.1 % (39.6-50.0); HGB 13.5 g/dL (13.0-17.0); MCH 30.5 pg (27.0-32.0); MCHC 36.4 g/dL (32.0-37.0); MCV 83.7 FL (80.0-97.0); NRBC Per 100 WBC 0 X 10*3/uL (0.00-0.01); Platelet Count 286 X 10*3/uL (140-440); RBC 4.43 X 10*6/uL (4.40-5.60); RDW 13.1 % (11.5-14.5)
[2023-06-17 15:03] VITALS: BP 117/67; PULSE 72; TEMP 98.5
[2023-06-17] MEDS ORDERED: PANTOPRAZOLE 40 MG TABLET PO SCH (17:30)
== END 2023-06-17 16:28 | disposition home or self-care (01) ==
LOC: EC 12:15 → 6NMEDSUR 13:32
PROVIDERS: ADMIT Internal Medicine; ATTEND Internal Medicine
DX: K52.9 Noninfective gastroenteritis and colitis, unspecified (principal); R11.2 Nausea with vomiting, unspecified; E87.20 Acidosis, unspecified; R63.4 Abnormal weight loss; Z68.30 Body mass index [BMI] 30.0-30.9, adult; Z79.899 Other long term (current) drug therapy
CPT/HCPCS: 96376 ×2; 96361 ×3; 96374; 99285; 36415; 80053; 80048; 85652; 83605; 83690; 85025 ×2; 85027; 85610; 85730; 86140; 82272 ×2; 87324; 83993; 87045; 87046; 45380; G0378 ×3; J2704; C9113 ×2; 88305